=== PATIENT | female | born 1985 | race Caucasian/White ===

== ENCOUNTER 2020-08-06 15:14 | Outpatient (REF) | payer BC, SELFPAY ==
[2020-08-06 13:56] LABS: ALT 27 U/L (14-59); AST 14 U/L (15-37); Albumin 3.8 g/dL (3.4-5.0); Alkaline Phosphatase 46 U/L (46-116); Anion Gap 8.4 mmol/L (3-11); BUN 14 mg/dL (7-18); Bilirubin, Total 0.5 mg/dL (0.2-1.0); CO2 27.6 mmol/L (21.0-32.0); CREATININE 0.8 mg/dL (0.55-1.02); Calcium 8.9 mg/dL (8.5-10.1); Calculated LDL 98 mg/dL (<100); Chloride 104 mmol/L (98-107); Cholesterol 165 mg/dL (<200); Glucose 78 mg/dL (74-106); HDL Cholesterol 54 mg/dL (40-60); Potassium 4.3 mmol/L (3.5-5.1); Sodium 140 mmol/L (136-145); TSH (W/Ref FT4) 1.13 uIU/mL (0.36-3.74); Total Protein 7.1 g/dL (6.4-8.2); Triglyceride 68 mg/dL (<150)
[2020-08-08 05:03] LABS: Vitamin D 25 Total 29.3 ng/ml (30-100)
[2020-08-08 12:19] LABS: Lamotrigine 2.2 mcg/mL (2.5 - 15.0)
== END 2020-08-06 15:15 | disposition home or self-care (01) ==
LOC: NCHCN 15:14
PROVIDERS: PCP Family Medicine; Visit Provider Family Medicine
DX: Z00.00 Encounter for general adult medical examination without abnormal findings (principal); E55.9 Vitamin D deficiency, unspecified; G40.909 Epilepsy, unspecified, not intractable, without status epilepticus; E66.9 Obesity, unspecified; Z51.81 Encounter for therapeutic drug level monitoring
CPT/HCPCS: 80053; 80061; 80175; 82306; 84443

== ENCOUNTER 2023-10-04 15:16 | Outpatient (REF) | payer BC, SELFPAY ==
[2023-10-06 09:04] LABS: Lyme Ab w Rflx to Lyme Confirm Negative (Negative)
[2023-10-08 00:27] LABS: Anaplasma phagocytophilum Negative (Negative); B. miyamotoi PCR Negative (Negative); Babesia divergens/MO-1 Negative (Negative); Babesia duncani Negative (Negative); Babesia microti Negative (Negative); Ehrlichia chaffeensis Negative (Negative); Ehrlichia ewingii/canis Negative (Negative); Ehrlichia muris eauclairensis Negative (Negative)
== END 2023-10-04 15:17 | disposition home or self-care (01) ==
LOC: NCHCN 15:16
PROVIDERS: PCP Family Medicine; Visit Provider Family Medicine
DX: W57.XXXD Bitten or stung by nonvenomous insect and other nonvenomous arthropods, subsequent encounter (principal)
CPT/HCPCS: 87798; 86618

== ENCOUNTER 2023-12-03 15:18 | Outpatient (REF) | payer BC, SELFPAY ==
--- OUTSIDE RECORDS SUMMARY | 2023-12-03 15:20 | XMS_ITS ---
Author Name Unknown Address [address] [place], [place] [phone] Phone Organization Unknown Address [address] [place] [phone] Phone Care Team Providers Care Wood Last Maker Name Role Phone GLOSS PRESTON Newberry Attending Unavailable BIN[facility] Alicea Primary Unavailable Social History Type Status Start Date End Date Code Code Syst em Smoking History Never smoker (Never Smoked) 069086077 SNOMED CT Sex Female Medications Medication Start Date End Date Route Frequency Dose Code Code System Medication Instructions Home Meds Ondansetron 4MG Oral Tablet, Disintegrating 12/16/2021 Unknown ORAL NEEDED EVERY 6 HOURS 1 TABLET 479149 RxNorm TAKE 1 TABLET ORAL NEEDED EVERY 6 HOURS FOR Nausea/Vomiting Hospital Discharge Instructions Should you have any questions prior to discharge, please contact a member of your healthcare team. If you have left the hospital and have any questions, please contact your primary care physician. Reason For Referral No Data Found Problems Problem Start Date Resolved Date Status Code Code System EPILEPSY 12/15/2021 resolved [id number] SNOMED-CT Allergies and Adverse Reactions Allergy Substance Reaction Severity Start Date Concern Status Code Code System AMOXICILLIN Anaphylaxis (SNOMED-CT: 57379773) Active 723 RxNorm Plan of Treatment US OB COMPLETE 06/05/2022 US OB LIMITED 02/20/2022 US OB BIOPHYSICAL PROF 02/13/2022 US OB / TV 12/16/2021 US OB / TV 11/18/2021 Encounters Encounter Diagnosis Start Date Code Code Sys tem Encounter for test, result positive 11/29/19 22 SNOMED-CT Personal Care Team Section Performer Name Performer Role Active Date Inactive Da te
--- OUTSIDE RECORDS SUMMARY | 2023-12-03 15:20 | XMS_ITS ---
Author Name Unknown Address [address] [place] [phone] Phone Organization Unknown Address [address] [place] [phone] Phone Care Team Providers Care Dba Developer Name Role Phone GLOSS PRESTON Newberry Attending Unavailable BIN[facility] Alicea Primary Unavailable Results US OB LESS THAN 14 WKS W TRA NSVAGINAL* - Completed: 11/18/2021 15:44 LOINC: OB ULTRASOUND: OB ultrasound was performed utilizing first trimester protocol. There is a single intrauterine gestational sac with single viable fetus. Bylas- rump length measurements are consistent with gestational age of 7 weeks and 3 days and EDC of 07/04/2022. heart rate is 159 BPM. Uterus contains at least three small fibroids, the largest a fundal fibroid measuring 28 mm in diameter. Right ovary unremarkable in appearance and measuring 29 x 19 x 19 mm. Left ovary contains a 31 mm in diameter simple cyst and 21 mm in diameter complex cyst consistent with corpus luteum cyst. There is a small quantity of free fluid in the cul-de-sac. CONCLUSION: Viable intrauterine gestation at 7 weeks and 3 days estimated gestational age. Dictated by: DAYANA CORDERO MD Transcribed by: AUGUSTINE 11/19/21/11:23 [id number] Electronically Reviewed and Signed By: RENETTA CORDERO MD 11/23/21 13:02 Copy for: BIN[facility] Alicea via fax Copy for: 185 HEALTH INFORMATION MGMT Social History Type Status Start Date End Date Code Code Syst em Smoking History Never smoker (Never Smoked) 749345219 SNOMED CT Sex Female Medications Medication Start Date End Date Route Frequency Dose Code Code System Medication Instructions Home Meds Ondansetron 4MG Oral Tablet, Disintegrating 12/16/2021 Unknown ORAL NEEDED EVERY 6 HOURS 1 TABLET 579624 RxNorm TAKE 1 TABLET ORAL NEEDED EVERY [...] Status Code Code System EPILEPSY 12/15/2021 resolved 60479139 SNOMED-CT Allergies and Adverse Reactions Allergy Substance Reaction Severity Start Date Concern Status Code Code System AMOXICILLIN Anaphylaxis (SNOMED-CT: 42365730) Active 723 RxNorm Plan of Treatment US OB COMPLETE 06/05/2022 US OB LIMITED 02/20/2022 US OB BIOPHYSICAL PROF 02/13/2022 US OB / TV 12/16/2021 US OB / TV 11/18/2021 Encounters Encounter Diagnosis Start Date Code Code Sys tem Hemorrhage in early , unspecified 11/18/2021 SNOMED-CT Personal Care Team Section Performer Name Performer Role Active Date Inactive Da te
--- OUTSIDE RECORDS SUMMARY | 2023-12-03 15:20 | XMS_ITS ---
Author Name Unknown Address [address] [place] [phone] Phone Organization Unknown Address [address] [place] [phone] Phone Care Team Providers Care Packaging Sales Consultant Name Role Phone GISEL Sawyer Attending Unavailable BIN[facility] Alicea Primary Unavailable Results HCG QUANTITATIVE WHOLE MOLEC ULE* - Collect Date/Time: 11/14/2021 17:22 [facility] ID: [id number] [address] [place] [address], [address] LOINC: 21476-3 Test Value Unit Reference Range Code Code System Flag HCG, total+Beta subs 34455 35277-5 LOINC TYPE AND ANTIBODY S CREEN* - Collect Date/Time: 11/14/2021 17:22 [facility] ID: [id number] [address] [place] [address], [id number] LOINC: 882-1 Test Value Unit Reference Range Code Code System Flag Blood Group B 883-9 LOINC Rh (D) POSITIVE 23306-6 LOINC Antibody Screen NEGATIVE 1005-8 LOINC CBC W/ DIFFERENTIAL* - Colle ct Date/Time: 11/14/2021 17:22 [facility] ID: [id number] [address] [place] [address], [address] LOINC: 01389-6 Test Value Unit Reference Range Code Code System Flag WBC 11.43 th/cmm L=5.00 H=10.00 6690-2 LOINC H NEUT % 66.3 % L=40.0 H=80.0 LYMPH % 22.8 % L=10.0 H=50.0 MONO % 8.0 % L=2.0 H=12.0 72567-2 LOINC EOS % 2.0 % L=0.0 H=8.0 BASO % 0.6 % L=0.0 H=3.0 IG % 0.3 % L=0.0 H=1.1 2514-8 LOINC NRBC % 0.0 % L=0.0 H=0.0 54795-7 LOINC NEUT abs count 7.6 th/cmm L=1.6 H=8.4 751-8 LOINC LYMPH abs count 2.6 th/cmm L=1.5 H=4.0 731-0 LOINC MONO abs count 0.9 th/cmm L=0.2 H=1.0 742-7 LOINC EOS abs count 0.2 th/cmm L=0.0 H=0.5 711-2 LOINC BASO abs count 0.1 th/cmm L=0.0 H=0.2 704-7 LOINC IG abs count 0.0 th/cmm L=0.0 H=0.1 03728-6 LOINC NRBC abs count 0.0 mil/cmm L=0.0 H=0.0 76293-4 LOINC RBC 4.84 mil/cmm L=3.90 H=5.40 789-8 LOINC HEMOGLOBIN 14.2 gm/dL L=12.0 H=16.0 718-7 LOINC HEMATOCRIT 42 % L=37 H=47 4544-3 LOINC MCV 87 fL L=82 H=92 787-2 LOINC MCH 29.3 pg L=27.0 H=31.0 785-6 LOINC MCHC 33.9 % L=32.0 H=36.0 786-4 LOINC RDW-SD 41.8 fL L=39.0 H=49.0 788-0 LOINC PLATELET COUNT 306 th/cmm L=150 H=450 777-3 LOINC THYROID TESTING CASCADE* - C ollect Date/Time: 11/14/2021 17:22 [facility] ID: [id number] [address] [place], [place], [address] LOINC: 3016-3 Test Value Unit Reference Range Code Code System Flag TSH. 1.510 uIU/mL L=0.360 H=3.740 3014-8 LOINC Social History Type Status Start Date End Date Code Code Syst em Smoking History Never smoker (Never Smoked) 996896628 SNOMED CT Sex Female Medications Medication Start Date End Date Route Frequency Dose Code Code System Medication Instructions Home Meds Ondansetron 4MG Oral Tablet, Disintegrating 12/16/2021 Unknown ORAL NEEDED EVERY 6 HOURS 1 TABLET 192317 RxNorm TAKE 1 TABLET ORAL NEEDED EVERY [...] Status Code Code System EPILEPSY 12/15/2021 resolved 87450099 SNOMED-CT Allergies and Adverse Reactions Allergy Substance Reaction Severity Start Date Concern Status Code Code System AMOXICILLIN Anaphylaxis (SNOMED-CT: 54351267) Active 723 RxNorm Plan of Treatment US OB COMPLETE 06/05/2022 US OB LIMITED 02/20/2022 US OB BIOPHYSICAL PROF 02/13/2022 US OB / TV 12/16/2021 US OB / TV 11/18/2021 Encounters Encounter Diagnosis Start Date Code Code Sys tem test positive 11/14/2021 [id number] [facility] ED-CT Personal Care Team Section Performer Name Performer Role Active Date Inactive Da te
--- OUTSIDE RECORDS SUMMARY | 2023-12-03 15:21 | XMS_ITS ---
Author Name Unknown Address [address] [place], [place] [phone] Phone Organization Unknown Address [address] [place] [phone] Phone Care Team Providers Care C.O.D. Audit Clerk Name Role Phone JEAN GARZA Registered Nurse Unavailable JORGE Hill Attending Unavailable BINH Alicea Primary Unavailable UNLISTED PROVIDER - REQUESTED Xhandoff Un available Results URINALYSIS WITH REFLEX CULT IF POSITIVE* - Collect Date/Time: 12/16/2021 00:01 [facility] ID: [id number] [address] [place], [place], [address] LOINC: 75365-4 Test Value Unit Reference Range Code Code System Flag COLLECTION MODE: CLEAN CATCH 52071-9 LOINC Color YELLOW yellow 5778-6 LOINC Appearance CLEAR clear 5767-9 LOINC Glucose urine NEGATIVE negative mg/dl 83069-5 LOINC Bilirubin NEGATIVE negative 5770-3 LOINC Ketones >=80 negative mg/dl 2514-8 LOINC A Spec gravity 1.025 1.003 - 1.030 5811-5 LOINC pH urine 6.0 5.0 - 7.0 2756-5 LOINC Protein NEGATIVE negative mg/dl 61588-6 LOINC Urobilinogen 0.2 <or= 1 EU/dl 72936-8 LOINC Nitrite. NEGATIVE negative 5802-4 LOINC Blood SMALL negative 5794-3 LOINC A Leukocytes. NEGATIVE negative MICROSCOPIC INDICATED WBCs. 0-5 0-5 / hpf 59176-9 LOINC RBCs 0-5 0-5 / hpf 63560-4 LOINC Epith cells 0-5 0-5 / hpf 44458-9 LOINC Cell types squamous Crystals none none Bacteria moderate none Mucus present none 8247-9 LOINC Casts none none /lpf 06449-1 LOINC Other 64755-9 LOINC COMPREHENSIVE METABOLIC PANE L (CMP) - Collect Date/Time: 12/15/2021 21:58 [facility] ID: [id number] [address] [place], [place], [address] LOINC: 26243-1 Test Value Unit Reference Range Code Code System Flag GLUCOSE 91 mg/dL L=70 H=116 2345-7 LOINC BUN 7 mg/dL L=6 H=25 3094-0 LOINC CREATININE 0.50 mg/dL L=0.51 H=0.95 2160-0 LOINC L SODIUM SERUM 135 mmol/L L=136 H=145 2951-2 LOINC L POTASSIUM SERUM 3.6 mmol/L L=3.4 H=5.2 2823-3 LOINC CHLORIDE SERUM 100 mmol/L L=96 H=110 2075-0 LOINC CARBON DIOXIDE (CO2) 21 mmol/L L=22 H=34 2028-9 LOINC L ANION GAP 14.2 mmol/L 48975-8 LOINC CALCIUM SERUM 8.7 mg/dL L=8.2 H=10.2 24589-3 LOINC BILIRUBIN TOTAL 0.4 mg/dL L=0.0 H=1.3 1975-2 LOINC ALK. PHOS. 49 U/L L=46 H=116 6768-6 LOINC SGOT (AST) 18 U/L L=15 H=37 1920-8 LOINC SGPT (ALT) 39 U/L L=12 H=78 1742-6 LOINC TOTAL PROTEIN 7.4 gm/dL L=6.0 H=8.0 2885-2 LOINC ALBUMIN 3.6 gm/dL L=3.4 H=5.0 1751-7 LOINC AGE 36 years eGFR (non-Afr.Amer.) > 120 mL/min 27563-5 LOINC eGFR (Afr-Mexican) > 120 mL/min 79499-4 LOINC CBC W/ DIFFERENTIAL* - Colle ct Date/Time: 12/15/2021 21:58 [facility] ID: [id number] [address] [place], [place], [address] LOINC: 56381-7 Test Value Unit Reference Range Code Code System Flag WBC 11.30 th/cmm L=5.00 H=10.00 6690-2 LOINC H NEUT % 78.0 % L=40.0 H=80.0 LYMPH % 14.8 % L=10.0 H=50.0 MONO % 5.6 % L=2.0 H=12.0 32035-2 LOINC EOS % 0.8 % L=0.0 H=8.0 BASO % 0.4 % L=0.0 H=3.0 IG % 0.4 % L=0.0 H=1.1 2514-8 LOINC NRBC % 0.0 % L=0.0 H=0.0 68613-4 LOINC NEUT abs count 8.8 th/cmm L=1.6 H=8.4 751-8 LOINC H LYMPH abs count 1.7 th/cmm L=1.5 H=4.0 731-0 LOINC MONO abs count 0.6 th/cmm L=0.2 H=1.0 742-7 LOINC EOS abs count 0.1 th/cmm L=0.0 H=0.5 711-2 LOINC BASO abs count 0.1 th/cmm L=0.0 H=0.2 704-7 LOINC IG abs count 0.1 th/cmm L=0.0 H=0.1 29478-4 LOINC NRBC abs count 0.0 mil/cmm L=0.0 H=0.0 98947-0 LOINC RBC 4.56 mil/cmm L=3.90 H=5.40 789-8 LOINC HEMOGLOBIN 13.5 gm/dL L=12.0 H=16.0 718-7 LOINC HEMATOCRIT 40 % L=37 H=47 4544-3 LOINC MCV 87 fL L=82 H=92 787-2 LOINC MCH 29.6 pg L=27.0 H=31.0 785-6 LOINC MCHC 34.1 % L=32.0 H=36.0 786-4 LOINC RDW-SD 41.3 fL L=39.0 H=49.0 788-0 LOINC PLATELET COUNT 277 th/cmm L=150 H=450 777-3 LOINC Social History Type Status Start Date End Date Code Code Syst em Smoking History Never smoker (Never Smoked) 266101645 SNOMED CT Sex Female Vital Signs Vital Sign Value Unit [place] Value [facility]wood Unit Date/Time Recent/Initial? Code Code System Body Mass Index 37.50 kg/m2 12/15/2021 21:35 Initial 31028 -5 INC Systolic Blood Pressure 131 mm[Hg] 12/15/2021 21:35 Initial 8480- 6 LOINC Diastolic Blood Pressure 93 mm[Hg] 12/15/2021 21:35 Initial 8462- 4 INC Body Surface Area 2.37 m2 12/15/2021 21:35 Initial 3140- 1 LOINC Height 175.260 0 cm 69.00 in 12/15/2021 21:35 Initial 8302- 2 INC O2 Saturation 97 % 2021 21:35 Initial 12510 -5 INC Pulse 80.0 /min 12/15/2021 21:35 Initial 8867- 4 LOINC Respiration 18 /min 12/16/19 21:35 Initial 9279- 1 LOINC Temperature 36.8 Sindi 98.2 F 12/16/19 21:35 Initial 8310- 5 LOINC Weight 115.20 kg 253.97 lbs 12/15/2021 21:35 Initial 31518 -7 [facility] Medications Medication Start Date End Date Route Frequency Dose Code Code System Medication Instructions Home Meds Ondansetron 4MG Oral Tablet, Disintegrating 12/16/2021 Unknown ORAL NEEDED EVERY 6 HOURS 1 TABLET 314212 RxNorm TAKE 1 TABLET ORAL NEEDED EVERY [...] Status Code Code System EPILEPSY 12/15/2021 resolved 35983361 SNOMED-CT Allergies and Adverse Reactions Allergy Substance Reaction Severity Start Date Concern Status Code Code System AMOXICILLIN Anaphylaxis (SNOMED-CT: 34409563) Active 723 RxNorm Plan of Treatment US OB COMPLETE 06/05/2022 US OB LIMITED 02/20/2022 US OB BIOPHYSICAL PROF 02/13/2022 US OB / TV 12/16/2021 US OB / TV 11/18/2021 Encounters Encounter Diagnosis Start Date Code Code Sys tem Vomiting of , unspecified 12/15/2021 SNOMED-CT Personal Care Team Section Performer Name Performer Role Active Date Inactive Da te
--- OUTSIDE RECORDS SUMMARY | 2023-12-03 15:21 | XMS_ITS ---
Author Name Unknown Address [address] [place] [phone] Phone Organization Unknown Address [address] [place] [phone] Phone Care Team Providers Care Analytical Scientist Name Role Phone JORGE DEVANTE Hill Attending Unavailable BINH Alicea Primary Unavailable Results US OB LESS THAN 14 WKS W TRA NSVAGINAL* - Completed: 12/16/2021 16:49 LOINC: OBSTETRICAL ULTRASOUND, ROUT INE EXAMINATION: There is a single living intrauterine gestation. Estimated sonographic age based on crown-rump length is 12 weeks for an estimated date of delivery of 06/30/2022. heart rate is 175 beats per minute. There is a Grade 2 anterior and fundal placenta. The placental tip is 1.5 cm from the internal os. There are two hypoechoic mass is again seen within the uterus, the larger measuring 3.2 x 2.3 x 2.9 and the smaller measuring 2.4 x 1.5 x 1.6 cm. These likely reflect uterine fibroids. The ovaries were not visualized on this examination. The cervix is closed and cervical length measures 4.3 cm. IMPRESSION: 1. Single living intrauterine gestation with an estimated sonographic of 12 weeks. 2. No acute abnormality. Dictated by: WELLINGTON GAMEZ MD Transcribed by: AUGUSTINE 12/18/2108:55 [id number] Electronically Reviewed and Signed By: KRANTHI GAMEZ MD 12/24/21 08:58 Copy for: BINH Alicea via fax Copy for: 185 HEALTH INFORMATION MGMT Social History Type Status Start Date End Date Code Code Syst em Smoking History Never smoker (Never Smoked) 031706105 SNOMED CT Sex Female Medications Medication Start Date End Date Route Frequency Dose Code Code System Medication Instructions Home Meds Ondansetron 4MG Oral Tablet, Disintegrating 12/16/2021 Unknown ORAL NEEDED EVERY 6 HOURS 1 TABLET 665783 RxNorm TAKE 1 TABLET ORAL NEEDED EVERY [...] Status Code Code System EPILEPSY 12/15/2021 resolved 48640273 SNOMED-CT Allergies and Adverse Reactions Allergy Substance Reaction Severity Start Date Concern Status Code Code System AMOXICILLIN Anaphylaxis (SNOMED-CT: 41973753) Active 723 RxNorm Plan of Treatment US OB COMPLETE 06/05/2022 US OB LIMITED 02/20/2022 US OB BIOPHYSICAL PROF 02/13/2022 US OB / TV 12/16/2021 US OB / TV 11/18/2021 Encounters Encounter Diagnosis Start Date Code Code Sys tem Hemorrhage in early , unspecified 12/16/2021 SNOMED-CT Personal Care Team Section Performer Name Performer Role Active Date Inactive Da te
--- OUTSIDE RECORDS SUMMARY | 2023-12-03 15:21 | XMS_ITS ---
Author Name Unknown Address [address], [place] [phone] Phone Organization Unknown Address [address] [place] [phone] Phone Care Team Providers Care Ophthalmic Aide Name Role Phone GLOSS PRESTON Newberry Attending Unavailable BINH Alicea Primary Unavailable Social History Type Status Start Date End Date Code Code Syst em Smoking History Never smoker (Never Smoked) 823253733 SNOMED CT Sex Female Medications Medication Start Date End Date Route Frequency Dose Code Code System Medication Instructions Home Meds Ondansetron 4MG Oral Tablet, Disintegrating 12/16/2021 Unknown ORAL NEEDED EVERY 6 HOURS 1 TABLET 124927 RxNorm TAKE 1 TABLET ORAL NEEDED EVERY [...] Status Code Code System EPILEPSY 12/15/2021 resolved 63248495 SNOMED-CT Allergies and Adverse Reactions Allergy Substance Reaction Severity Start Date Concern Status Code Code System AMOXICILLIN Anaphylaxis (SNOMED-CT: 62265756) Active 723 RxNorm Plan of Treatment US OB COMPLETE 06/05/2022 US OB LIMITED 02/20/2022 US OB BIOPHYSICAL PROF 02/13/2022 US OB / TV 12/16/2021 US OB / TV 11/18/2021 Encounters Encounter Diagnosis Start Date Code Code Sys tem Routine care 12/16/2021 539999743 SNOME D-CT Personal Care Team Section Performer Name Performer Role Active Date Inactive Da te
--- OUTSIDE RECORDS SUMMARY | 2023-12-03 15:21 | XMS_ITS ---
Author Name Unknown Address [address] [place], [place] [phone] Phone Organization Unknown Address [address] [place] [phone] Phone Care Team Providers Care Nurse Informatics Educator Name Role Phone CARMELINA Rouse Attending Unavailable BINH Alicea Primary Unavailable Social History Type Status Start Date End Date Code Code Syst em Smoking History Never smoker (Never Smoked) 468566362 SNOMED CT Sex Female Medications Medication Start Date End Date Route Frequency Dose Code Code System Medication Instructions Home Meds Ondansetron 4MG Oral Tablet, Disintegrating 12/16/2021 Unknown ORAL NEEDED EVERY 6 HOURS 1 TABLET 417356 RxNorm TAKE 1 TABLET ORAL NEEDED EVERY [...] Status Code Code System EPILEPSY 12/15/2021 resolved 73398243 SNOMED-CT Allergies and Adverse Reactions Allergy Substance Reaction Severity Start Date Concern Status Code Code System AMOXICILLIN Anaphylaxis (SNOMED-CT: 57653823) Active 723 RxNorm Plan of Treatment US OB COMPLETE 06/05/2022 US OB LIMITED 02/20/2022 US OB BIOPHYSICAL PROF 02/13/2022 US OB / TV 12/16/2021 US OB / TV 11/18/2021 Encounters Encounter Diagnosis Start Date Code Code Sys tem Maternal obesity complicatin g , childbirth and the puerperium, antepartum 12/23/2021 [id number] SNOMED-CT Personal Care Team Section Performer Name Performer Role Active Date Inactive Da te
--- OUTSIDE RECORDS SUMMARY | 2023-12-03 15:22 | XMS_ITS ---
Author Name Unknown Address [address] [place] [phone] Phone Organization Unknown Address [address] [place] [phone] Phone Care Team Providers Care Wellness Nurse Name Role Phone GLOSS PRESTON Newberry Attending Unavailable BINH Alicea Primary Unavailable Results LEAD WHOLE BLOOD* - Collect Date/Time: 01/21/2022 17:44 [facility] ID: [id number] [address] [place] [address], [id number] LOINC: 13938-0 Test Value Unit Reference Range Code Code System Flag Lead <2.0 <2.0 HEP B SURF ANTIGEN* - Collec t Date/Time: 01/21/2022 17:44 [facility] ID: [id number] [address] [place], [place], [id number] LOINC: 5196-1 Test Value Unit Reference Range Code Code System Flag Hep B Surface Ag Negative Negative HEP C ANTIBODY WITH REFLEX P CR - Collect Date/Time: 01/21/2022 17:44 [facility] ID: [id number] [address] [place], [place], [id number] LOINC: 53077-7 Test Value Unit Reference Range Code Code System Flag Hep C Ab w Rfx PCR Negative Negative SYPHILIS SEROLOGY* - Collect Date/Time: 01/21/2022 17:44 [facility] ID: [id number] [address] [place], [place], [id number] LOINC: 77270-8 Test Value Unit Reference Range Code Code System Flag Syphilis Serology Negative Negative RUBELLA IGG ANTIBODY - Colle ct Date/Time: 01/21/2022 17:44 [facility] ID: [id number] [address] [place], [place], [id number] LOINC: 25358-5 Test Value Unit Reference Range Code Code System Flag Rubella IgG Ab Negative See Note HEMATOLOGY* - Colle ct Date/Time: 01/21/2022 17:44 [facility] ID: [id number] [address] [place], [place], [id number] LOINC: 47960-8 Test Value Unit Reference Range Code Code System Flag WBC 12.81 th/cmm L=5.00 H=10.00 6690-2 LOINC H NEUT % 74.0 % L=40.0 H=80.0 LYMPH % 18.3 % L=10.0 H=50.0 MONO % 5.7 % L=2.0 H=12.0 86981-8 LOINC EOS % 1.3 % L=0.0 H=8.0 BASO % 0.4 % L=0.0 H=3.0 IG % 0.3 % L=0.0 H=1.1 2514-8 LOINC NRBC % 0.0 % L=0.0 H=0.0 50871-1 LOINC NEUT abs count 9.5 th/cmm L=1.6 H=8.4 751-8 LOINC H LYMPH abs count 2.3 th/cmm L=1.5 H=4.0 731-0 LOINC MONO abs count 0.7 th/cmm L=0.2 H=1.0 742-7 LOINC EOS abs count 0.2 th/cmm L=0.0 H=0.5 711-2 LOINC BASO abs count 0.1 th/cmm L=0.0 H=0.2 704-7 LOINC IG abs count 0.0 th/cmm L=0.0 H=0.1 92449-0 LOINC NRBC abs count 0.0 mil/cmm L=0.0 H=0.0 32804-1 LOINC RBC 4.18 mil/cmm L=3.90 H=5.40 789-8 LOINC HEMOGLOBIN 12.3 gm/dL L=12.0 H=16.0 718-7 LOINC HEMATOCRIT 37 % L=37 H=47 4544-3 LOINC MCV 88 fL L=82 H=92 787-2 LOINC MCH 29.4 pg L=27.0 H=31.0 785-6 LOINC MCHC 33.6 % L=32.0 H=36.0 786-4 LOINC RDW-SD 44.0 fL L=39.0 H=49.0 788-0 LOINC PLATELET COUNT 253 th/cmm L=150 H=450 777-3 LOINC HIV 1/2 ANTIGEN AND ANTIBODY SCREEN - Collect Date/Time: 01/21/2022 17:44 [facility] ID: [id number] [address] [place], [place], [id number] LOINC: 87483-6 Test Value Unit Reference Range Code Code System Flag HIV 1/2 Antigen andAntibody Negative Negative Social History Type Status Start Date End Date Code Code Syst em Smoking History Never smoker (Never Smoked) 818063673 SNOMED CT Sex Female Medications Medication Start Date End Date Route Frequency Dose Code Code System Medication Instructions Home Meds Ondansetron 4MG Oral Tablet, Disintegrating 12/16/2021 Unknown ORAL NEEDED EVERY 6 HOURS 1 TABLET 381439 RxNorm TAKE 1 TABLET ORAL NEEDED EVERY [...] Status Code Code System EPILEPSY 12/15/2021 resolved 71191401 SNOMED-CT Allergies and Adverse Reactions Allergy Substance Reaction Severity Start Date Concern Status Code Code System AMOXICILLIN Anaphylaxis (SNOMED-CT: 38229555) Active 723 RxNorm Plan of Treatment US OB COMPLETE 06/05/2022 US OB LIMITED 02/20/2022 US OB BIOPHYSICAL PROF 02/13/2022 US OB / TV 12/16/2021 US OB / TV 11/18/2021 Encounters Encounter Diagnosis Start Date Code Code Sys tem screening 01/21/2022 345783864 SNOMED-C T Personal Care Team Section Performer Name Performer Role Active Date Inactive Da te
--- OUTSIDE RECORDS SUMMARY | 2023-12-03 15:22 | XMS_ITS ---
Author Name Unknown Address [address] [place] [address] [phone] Phone Organization Unknown Address [address] [place] [address] [phone] Phone Care Team Providers Care Manager Package Name Role Phone BLESSING SEPTEMBER Attending Unavailable BINH Alicea Primary Unavailable Results US OB LIMITED - Completed: 0 02/20/2022 14:54 LOINC: [place], [place] [address] PACS MACHINE WELT BUTTER REPORT Patient Name: ABDIFATAH MATSON MRN: Sex: : Age: [id number] F 1985 36 Account: Accession: Admit: StayType: [id number] 02/20/2022 O/P Ordered: Order ID: Entered Order: Ordering Provider: 02/20/2022 14:28 [id number] KT JULIETALEAH Completed: Tech Completed: Resulted DTTM: 02/20/2022 14:54 02/20/2022 17:45 Study Description: US OB LIMITED Study Reason: OBESITYINPREGNANCY TECHNIQUE: Transabdominal obstetrical ultrasound performed. Comparison examination is 02/13/2022. FINDINGS: Number of fetuses: One. position: Breech. Placental location: Anterior. No evidence of previa. morphology: The nose, lips, profile, four-chamber heart and right and left ventricular outflow tracts are unremarkable. IMPRESSION: 1. Single live intrauterine gestation as above. 2. Completion of the anatomic survey shows unremarkable face and heart. Report Digitally Signed by Petros Hansen on 02/20/2022 05:45 PM EDT Social History Type Status Start Date End Date Code Code Syst em Smoking History Never smoker (Never Smoked) 326980966 SNOMED CT Sex Female Medications Medication Start Date End Date Route Frequency Dose Code Code System Medication Instructions Home Meds Ondansetron 4MG Oral Tablet, Disintegrating 12/16/2021 Unknown ORAL NEEDED EVERY 6 HOURS 1 TABLET 319449 RxNorm TAKE 1 TABLET ORAL NEEDED EVERY [...] Status Code Code System EPILEPSY 12/15/2021 resolved 08032320 SNOMED-CT Allergies and Adverse Reactions Allergy Substance Reaction Severity Start Date Concern Status Code Code System AMOXICILLIN Anaphylaxis (SNOMED-CT: 32615783) Active 723 RxNorm Plan of Treatment US OB COMPLETE 06/05/2022 US OB LIMITED 02/20/2022 US OB BIOPHYSICAL PROF 02/13/2022 US OB / TV 12/16/2021 US OB / TV 11/18/2021 Encounters Encounter Diagnosis Start Date Code Code Sys tem Obesity complicating , second trimester 02/20 SNOMED-CT Personal Care Team Section Performer Name Performer Role Active Date Inactive Da te
--- OUTSIDE RECORDS SUMMARY | 2023-12-03 15:22 | XMS_ITS ---
Author Name Unknown Address [address] [place] [address] [phone] Phone Organization Unknown Address [address] [place] [address] [phone] Phone Care Team Providers Care Feather Maker Name Role Phone GISEL Sawyer Attending Unavailable BINH Alicea Primary Unavailable Results CULT URINE CULTURE* - Yaa goncalves Date/Time: 01/23/2022 16:23 [facility] ID: [id number] [address] [place] [address], [id number] LOINC: 630-4 Test Value Unit Reference Range Code Code System Flag COLLECTION MODE: NOT STATED 35419-7 LOINC Social History Type Status Start Date End Date Code Code Syst em Smoking History Never smoker (Never Smoked) 581582120 SNOMED CT Sex Female Medications Medication Start Date End Date Route Frequency Dose Code Code System Medication Instructions Home Meds Ondansetron 4MG Oral Tablet, Disintegrating 12/16/2021 Unknown ORAL NEEDED EVERY 6 HOURS 1 TABLET 874528 RxNorm TAKE 1 TABLET ORAL NEEDED EVERY [...] Status Code Code System EPILEPSY 12/15/2021 resolved 93915861 SNOMED-CT Allergies and Adverse Reactions Allergy Substance Reaction Severity Start Date Concern Status Code Code System AMOXICILLIN Anaphylaxis (SNOMED-CT: 47957772) Active 723 RxNorm Plan of Treatment US OB COMPLETE 06/05/2022 US OB LIMITED 02/20/2022 US OB BIOPHYSICAL PROF 02/13/2022 US OB / TV 12/16/2021 US OB / TV 11/18/2021 Encounters Encounter Diagnosis Start Date Code Code Sys tem Supervision of elderly primigravida, second trimester 01/23/2022 SNOMED-CT Personal Care Team Section Performer Name Performer Role Active Date Inactive Da te
--- OUTSIDE RECORDS SUMMARY | 2023-12-03 15:22 | XMS_ITS ---
Author Name Unknown Address [address] [place] [address] [phone] Phone Organization Unknown Address [address] [place] [address] [phone] Phone Care Team Providers Care Sheet Tailer Name Role Phone CARMELINA Rouse Attending Unavailable BINH Alicea Primary Unavailable Results CHLAMYDIA/GC AMPLIFIED PROBE * - Collect Date/Time: 02/13/2022 13:39 [facility] ID: [id number] [address] [place] [address], [phone] LOINC: 73093-9 Test Value Unit Reference Range Code Code System Flag Chlamydia Result Negative Negative GC Result Negative Negative US OB FAS - Completed: 02/13 11:52 LOINC: [facility] [place], [place] [address] PACS SAFETY MANAGER REPORT Patient Name: ABDIFATAH MATSON MRN: Sex: : Age: [id number] F 1985 36 Account: Accession: Admit: StayType: [id number] 02/13/2022 O/P Ordered: Order ID: Entered Order: Ordering Provider: 02/13/2022 10:49 [id number] [facility] REYNA COSME Completed: Tech Completed: Resulted DTTM: 02/13/2022 11:52 02/13/2022 12:11 Study Description: US OB FAS Study Reason: FAS FINDINGS: Study Description: US OB FAS Study Reason: FAS TECHNIQUE: Transabdominal obstetrical ultrasound performed. FINDINGS: Number of fetuses: One. position: Cephalic. Placental location: Anterior and fundal. No evidence of previa. BIOMETRIC DATA: EFW: [361] grms Composite Age: [20 weeks 4 days, consistent with prior dating.] EDC: [29 June 2022] Heart Rate: [] 157 BPM Amniotic fluid index: [15.3] Cm. [Visually, amount of fluid is within normal limits.] Anatomic survey: face and heart are not optimally visualized. The survey is otherwise within normal limits. IMPRESSION: 1. [Single live intrauterine gestation 20 weeks 4 days.] [] 2. face and heart are not optimally imaged. Patient should return for additional imaging. [] Report Digitally Signed by Padmini Hanson on 02/13/2022 12:11 PM EDT Social History Type Status Start Date End Date Code Code Syst em Smoking History Never smoker (Never Smoked) 253548473 SNOMED CT Sex Female Medications Medication Start Date End Date Route Frequency Dose Code Code System Medication Instructions Home Meds Ondansetron 4MG Oral Tablet, Disintegrating 12/16/2021 Unknown ORAL NEEDED EVERY 6 HOURS 1 TABLET 843309 RxNorm TAKE 1 TABLET ORAL NEEDED EVERY [...] Status Code Code System EPILEPSY 12/15/2021 resolved 55913466 SNOMED-CT Allergies and Adverse Reactions Allergy Substance Reaction Severity Start Date Concern Status Code Code System AMOXICILLIN Anaphylaxis (SNOMED-CT: 66086210) Active 723 RxNorm Plan of Treatment US OB COMPLETE 06/05/2022 US OB LIMITED 02/20/2022 US OB BIOPHYSICAL PROF 02/13/2022 US OB / TV 12/16/2021 US OB / TV 11/18/2021 Encounters Encounter Diagnosis Start Date Code Code Sys tem Encounter for other specified screening 02/2022 SNOMED-CT Personal Care Team Section Performer Name Performer Role Active Date Inactive Da te
--- OUTSIDE RECORDS SUMMARY | 2023-12-03 15:23 | XMS_ITS ---
Author Name Unknown Address [address] [place], [place] [phone] Phone Organization Unknown Address [address] [place] [address] [phone] Phone Care Team Providers Care National Recruiter Name Role Phone GLOSS PRESTON Newberry Attending Unavailable BINH Alicea Primary Unavailable Social History Type Status Start Date End Date Code Code Syst em Smoking History Never smoker (Never Smoked) 278591031 SNOMED CT Sex Female Medications Medication Start Date End Date Route Frequency Dose Code Code System Medication Instructions Home Meds Ondansetron 4MG Oral Tablet, Disintegrating 12/16/2021 Unknown ORAL NEEDED EVERY 6 HOURS 1 TABLET 080562 RxNorm TAKE 1 TABLET ORAL NEEDED EVERY [...] Status Code Code System EPILEPSY 12/15/2021 resolved 82859325 SNOMED-CT Allergies and Adverse Reactions Allergy Substance Reaction Severity Start Date Concern Status Code Code System AMOXICILLIN Anaphylaxis (SNOMED-CT: 29239341) Active 723 RxNorm Plan of Treatment US OB COMPLETE 06/05/2022 US OB LIMITED 02/20/2022 US OB BIOPHYSICAL PROF 02/13/2022 US OB / TV 12/16/2021 US OB / TV 11/18/2021 Encounters Encounter Diagnosis Start Date Code Code Sys tem Elderly primigravida 04/24/2022 35967269 SNOMED- CT Personal Care Team Section Performer Name Performer Role Active Date Inactive Da te
--- OUTSIDE RECORDS SUMMARY | 2023-12-03 15:23 | XMS_ITS ---
Author Name Unknown Address [address] [place], [place] [phone] Phone Organization Unknown Address [address] [place] [address] [phone] Phone Care Team Providers Care Developer Support Engineer Name Role Phone GISEL Sawyer Attending Unavailable BINH Alicea Primary Unavailable Results HEMOGRAM + PLATELET WO DIFF - Collect Date/Time: 04/08/2022 17:39 [facility] ID: [id number] [address] [place], [place], [phone] LOINC: 34205-8 Test Value Unit Reference Range Code Code System Flag WBC 12.74 th/cmm L=5.00 H=10.00 6690-2 LOINC H NRBC % 0.0 % L=0.0 H=0.0 67588-4 LOINC NRBC abs count 0.0 mil/cmm L=0.0 H=0.0 71995-1 LOINC RBC 3.80 mil/cmm L=3.90 H=5.40 789-8 LOINC L HEMOGLOBIN 11.5 gm/dL L=12.0 H=16.0 718-7 LOINC L HEMATOCRIT 35 % L=37 H=47 4544-3 LOINC L MCV 92 fL L=82 H=92 787-2 LOINC MCH 30.3 pg L=27.0 H=31.0 785-6 LOINC MCHC 33.0 % L=32.0 H=36.0 786-4 LOINC RDW-SD 46.5 fL L=39.0 H=49.0 788-0 LOINC PLATELET COUNT 277 th/cmm L=150 H=450 777-3 LOINC GLUCOSE - 1 HOUR AFTER 50GM GLUCOLA - Collect Date/Time: 04/08/2022 17:39 [facility] ID: [id number] [address] [place], [place], [address] LOINC: 1504-0 Test Value Unit Reference Range Code Code System Flag GLUCOSE 1 HOUR 109 mg/dL L=0 H=135 1504-0 LOINC Social History Type Status Start Date End Date Code Code Syst em Smoking History Never smoker (Never Smoked) 219445489 SNOMED CT Sex Female Medications Medication Start Date End Date Route Frequency Dose Code Code System Medication Instructions Home Meds Ondansetron 4MG Oral Tablet, Disintegrating 12/16/2021 Unknown ORAL NEEDED EVERY 6 HOURS 1 TABLET 775807 RxNorm TAKE 1 TABLET ORAL NEEDED EVERY [...] Status Code Code System EPILEPSY 12/15/2021 resolved 94607581 SNOMED-CT Allergies and Adverse Reactions Allergy Substance Reaction Severity Start Date Concern Status Code Code System AMOXICILLIN Anaphylaxis (SNOMED-CT: 84896371) Active 723 RxNorm Plan of Treatment US OB COMPLETE 06/05/2022 US OB LIMITED 02/20/2022 US OB BIOPHYSICAL PROF 02/13/2022 US OB / TV 12/16/2021 US OB / TV 11/18/2021 Encounters Encounter Diagnosis Start Date Code Code Sys tem Elderly primigravida 04/08/2022 08237828 SNOMED- CT Personal Care Team Section Performer Name Performer Role Active Date Inactive Da becky
--- OUTSIDE RECORDS SUMMARY | 2023-12-03 15:23 | XMS_ITS ---
Author Name Unknown Address [address] [place], [place] [phone] Phone Organization Unknown Address [address] [place] [address] [phone] Phone Care Team Providers Care Food Quality Tester Name Role Phone GISEL Sawyer Attending Unavailable BINH Alicea Primary Unavailable Social History Type Status Start Date End Date Code Code Syst em Smoking History Never smoker (Never Smoked) 155460875 SNOMED CT Sex Female Medications Medication Start Date End Date Route Frequency Dose Code Code System Medication Instructions Home Meds Ondansetron 4MG Oral Tablet, Disintegrating 12/16/2021 Unknown ORAL NEEDED EVERY 6 HOURS 1 TABLET 227093 RxNorm TAKE 1 TABLET ORAL NEEDED EVERY [...] Status Code Code System EPILEPSY 12/15/2021 resolved 38219123 SNOMED-CT Allergies and Adverse Reactions Allergy Substance Reaction Severity Start Date Concern Status Code Code System AMOXICILLIN Anaphylaxis (SNOMED-CT: 28950156) Active 723 RxNorm Plan of Treatment US OB COMPLETE 06/05/2022 US OB LIMITED 02/20/2022 US OB BIOPHYSICAL PROF 02/13/2022 US OB / TV 12/16/2021 US OB / TV 11/18/2021 Encounters Encounter Diagnosis Start Date Code Code Sys tem Elderly primigravida 03/13/2022 74684115 SNOMED- CT Personal Care Team Section Performer Name Performer Role Active Date Inactive Da te
--- OUTSIDE RECORDS SUMMARY | 2023-12-03 15:24 | XMS_ITS ---
Author Name Unknown Address [address] [place], [place] [phone] Phone Organization Unknown Address [address] [place] [address] [phone] Phone Care Team Providers Care Sales Market Leader Name Role Phone JULIETALEAH SEPTEMBER Attending Unavailable BINH Alicea Primary Unavailable Results GROUP B STREP DNA BY PCR - C ollect Date/Time: 06/12/2022 16:00 [facility] ID: [id number] [address] [place] [address], [phone] LOINC: 93724-5 Test Value Unit Reference Range Code Code System Flag GROUP B STREP NEGATIVE Normal: Negative OTHER SOURCE: VAG/RECTA PCN ALLERGY? YES Copy Sent to OB? YES Social History Type Status Start Date End Date Code Code Syst em Smoking History Never smoker (Never Smoked) 247752411 SNOMED CT Sex Female Medications Medication Start Date End Date Route Frequency Dose Code Code System Medication Instructions Home Meds Ondansetron 4MG Oral Tablet, Disintegrating 12/16/2021 Unknown ORAL NEEDED EVERY 6 HOURS 1 TABLET 796741 RxNorm TAKE 1 TABLET ORAL NEEDED EVERY [...] Status Code Code System EPILEPSY 12/15/2021 resolved 97343635 SNOMED-CT Allergies and Adverse Reactions Allergy Substance Reaction Severity Start Date Concern Status Code Code System AMOXICILLIN Anaphylaxis (SNOMED-CT: 59915930) Active 723 RxNorm Plan of Treatment US OB COMPLETE 06/05/2022 US OB LIMITED 02/20/2022 US OB BIOPHYSICAL PROF 02/13/2022 US OB / TV 12/16/2021 US OB / TV 11/18/2021 Encounters Encounter Diagnosis Start Date Code Code Sys tem Maternal obesity complicatin g , childbirth and the puerperium, antepartum 06/12/2022 [id number] SNOMED-CT Personal Care Team Section Performer Name Performer Role Active Date Inactive Da te
--- OUTSIDE RECORDS SUMMARY | 2023-12-03 15:24 | XMS_ITS ---
Author Name Unknown Address [address] [place], [place] [phone] Phone Organization Unknown Address [address] [place] [phone] Phone Care Team Providers Care General Road Production Manager Name Role Phone GLOSS PRESTON Newberry Attending Unavailable BINH Alicea Primary Unavailable Social History Type Status Start Date End Date Code Code Syst em Smoking History Never smoker (Never Smoked) 176942168 SNOMED CT Sex Female Medications Medication Start Date End Date Route Frequency Dose Code Code System Medication Instructions Home Meds Ondansetron 4MG Oral Tablet, Disintegrating 12/16/2021 Unknown ORAL NEEDED EVERY 6 HOURS 1 TABLET 451376 RxNorm TAKE 1 TABLET ORAL NEEDED EVERY [...] Status Code Code System EPILEPSY 12/15/2021 resolved 16467461 SNOMED-CT Allergies and Adverse Reactions Allergy Substance Reaction Severity Start Date Concern Status Code Code System AMOXICILLIN Anaphylaxis (SNOMED-CT: 08546666) Active 723 RxNorm Plan of Treatment US OB COMPLETE 06/05/2022 US OB LIMITED 02/20/2022 US OB BIOPHYSICAL PROF 02/13/2022 US OB / TV 12/16/2021 US OB / TV 11/18/2021 Encounters Encounter Diagnosis Start Date Code Code Sys tem Elderly primigravida 05/08/2022 48276297 SNOMED- CT Personal Care Team Section Performer Name Performer Role Active Date Inactive Da te
--- OUTSIDE RECORDS SUMMARY | 2023-12-03 15:24 | XMS_ITS ---
Author Name Unknown Address [address] [place] [address] [phone] Phone Organization Unknown Address [address] [place] [address] [phone] Phone Care Team Providers Care Brim Rounder Name Role Phone BLESSING LIN Attending Unavailable BINH Alicea Primary Unavailable Results US OB GREATER THAN 14 WEEKS - Completed: 06/05/2022 14:27 LOINC: [place], [place] [address] PACS KILN CAR REPAIRER REPORT Patient Name: ABDIFATAH MATSON MRN: Sex: : Age: [id number] F 1985 36 Account: Accession: Admit: StayType: [id number] 06/05/2022 O/P Ordered: Order ID: Submitted: Ordering Provider: 06/05/2022 14:01 [id number] RILEY SUÁREZ Completed: Technologist: Resulted: 06/05/2022 14:27 BM 06/05/2022 14:53 Study Description: US OB GREATER THAN 14 WEEKS Study Reason: EFW & BOOM TECHNIQUE: Transabdominal obstetrical ultrasound was performed. COMPARISON: No exams were available for comparison FINDINGS: There is a single viable intrauterine gestation with cardiac activity identified-143 bpm The fetus is presently in cephalic position with spine pointing posteriorly. Amniotic fluid: There is a normal amount of amniotic fluid with an BOOM of 14.0cm. Placental location: The placenta is anterior grade 2,with no evidence of placenta previa. Distance from tip of placenta to the internal cervical os is 8 cm on today's study. Dating parameters place this at approximately 36 weeks and 2 days gestational age, implying CHAPO of July 01, 2022. BPD measures 35 weeks and 3 days HC measures 37 weeks and 0 days AC measures 36 weeks and 2 days FL measures 36 weeks and 4 days HL measures 36 weeks and 2 days Estimated weight is 6 pounds 7 ounces gm- Fetus is at the 53rd percentile on the Hadlock scale. Fetus is at the 50th percentile on the [place] hybrid growth curve. IMPRESSION: Viable 3rd trimester gestation, as described above. Report Digitally Signed by Dane Boogie on 06/05/2022 02:53 PM EST Social History Type Status Start Date End Date Code Code Syst em Smoking History Never smoker (Never Smoked) 658798681 SNOMED CT Sex Female Medications Medication Start Date End Date Route Frequency Dose Code Code System Medication Instructions Home Meds Ondansetron 4MG Oral Tablet, Disintegrating 12/16/2021 Unknown ORAL NEEDED EVERY 6 HOURS 1 TABLET 874285 RxNorm TAKE 1 TABLET ORAL NEEDED EVERY [...] Status Code Code System EPILEPSY 12/15/2021 resolved 78823992 SNOMED-CT Allergies and Adverse Reactions Allergy Substance Reaction Severity Start Date Concern Status Code Code System AMOXICILLIN Anaphylaxis (SNOMED-CT: 91059385) Active 723 RxNorm Plan of Treatment US OB COMPLETE 06/05/2022 US OB LIMITED 02/20/2022 US OB BIOPHYSICAL PROF 02/13/2022 US OB / TV 12/16/2021 US OB / TV 11/18/2021 Encounters Encounter Diagnosis Start Date Code Code Sys tem Uterine size-date discrepancy, third trimester 022 SNOMED-CT Personal Care Team Section Performer Name Performer Role Active Date Inactive Da te
--- OUTSIDE RECORDS SUMMARY | 2023-12-03 15:24 | XMS_ITS ---
Author Name Unknown Address [address] [place], [place] [phone] Phone Organization Unknown Address [address] [place] [phone] Phone Care Team Providers Care Denture Processor Name Role Phone September Attending Unavailable BINH Alicea Primary Unavailable Social History Type Status Start Date End Date Code Code Syst em Smoking History Never smoker (Never Smoked) 306388456 SNOMED CT Sex Female Medications Medication Start Date End Date Route Frequency Dose Code Code System Medication Instructions Home Meds Ondansetron 4MG Oral Tablet, Disintegrating 12/16/2021 Unknown ORAL NEEDED EVERY 6 HOURS 1 TABLET 591009 RxNorm TAKE 1 TABLET ORAL NEEDED EVERY [...] Status Code Code System EPILEPSY 12/15/2021 resolved 91305580 SNOMED-CT Allergies and Adverse Reactions Allergy Substance Reaction Severity Start Date Concern Status Code Code System AMOXICILLIN Anaphylaxis (SNOMED-CT: 98213028) Active 723 RxNorm Plan of Treatment US OB COMPLETE 06/05/2022 US OB LIMITED 02/20/2022 US OB BIOPHYSICAL PROF 02/13/2022 US OB / TV 12/16/2021 US OB / TV 11/18/2021 Encounters Encounter Diagnosis Start Date Code Code Sys tem Uterine size for dates discrepancy 05/22/2022 744657 008 SNOMED-CT Personal Care Team Section Performer Name Performer Role Active Date Inactive Da te
--- OUTSIDE RECORDS SUMMARY | 2023-12-03 15:25 | XMS_ITS ---
Author Name Unknown Address [address] [place], [place] [phone] Phone Organization Unknown Address [address] [place] [address] [phone] Phone Care Team Providers Care Allergist/Md Name Role Phone CARMELINA Rouse Attending Unavailable BINH Alicea Primary Unavailable Social History Type Status Start Date End Date Code Code Syst em Smoking History Never smoker (Never Smoked) 068784414 SNOMED CT Sex Female Medications Medication Start Date End Date Route Frequency Dose Code Code System Medication Instructions Home Meds Ondansetron 4MG Oral Tablet, Disintegrating 12/16/2021 Unknown ORAL NEEDED EVERY 6 HOURS 1 TABLET 469317 RxNorm TAKE 1 TABLET ORAL NEEDED EVERY [...] Status Code Code System EPILEPSY 12/15/2021 resolved 79120518 SNOMED-CT Allergies and Adverse Reactions Allergy Substance Reaction Severity Start Date Concern Status Code Code System AMOXICILLIN Anaphylaxis (SNOMED-CT: 50076240) Active 723 RxNorm Plan of Treatment US OB COMPLETE 06/05/2022 US OB LIMITED 02/20/2022 US OB BIOPHYSICAL PROF 02/13/2022 US OB / TV 12/16/2021 US OB / TV 11/18/2021 Encounters Encounter Diagnosis Start Date Code Code Sys tem Maternal obesity complicatin g , childbirth and the puerperium, antepartum 06/19/2022 317348311878 SNOMED-CT Personal Care Team Section Performer Name Performer Role Active Date Inactive Da te
--- OUTSIDE RECORDS SUMMARY | 2023-12-03 15:25 | XMS_ITS ---
Author Name Unknown Address [address] [place], [place] [phone] Phone Organization Unknown Address [address] [place] [phone] Phone Care Team Providers Care Quarrying Manager Name Role Phone September Attending Unavailable BINH Alicea Primary Unavailable Social History Type Status Start Date End Date Code Code Syst em Smoking History Never smoker (Never Smoked) 377800800 SNOMED CT Sex Female Medications Medication Start Date End Date Route Frequency Dose Code Code System Medication Instructions Home Meds Ondansetron 4MG Oral Tablet, Disintegrating 12/16/2021 Unknown ORAL NEEDED EVERY 6 HOURS 1 TABLET 026849 RxNorm TAKE 1 TABLET ORAL NEEDED EVERY [...] Status Code Code System EPILEPSY 12/15/2021 resolved 67940254 SNOMED-CT Allergies and Adverse Reactions Allergy Substance Reaction Severity Start Date Concern Status Code Code System AMOXICILLIN Anaphylaxis (SNOMED-CT: 53621222) Active 723 RxNorm Plan of Treatment US OB COMPLETE 06/05/2022 US OB LIMITED 02/20/2022 US OB BIOPHYSICAL PROF 02/13/2022 US OB / TV 12/16/2021 US OB / TV 11/18/2021 Encounters Encounter Diagnosis Start Date Code Code Sys tem Elderly primigravida 06/26/2022 49636452 SNOMED- CT Personal Care Team Section Performer Name Performer Role Active Date Inactive Da te
--- OUTSIDE RECORDS SUMMARY | 2023-12-03 15:26 | XMS_ITS ---
Author Name Unknown Address [address] [place], [place] [phone] Phone Organization Unknown Address [address] [place] [phone] Phone Care Team Providers Care Frog Or Oyster Farmworker Name Role Phone CARMELINA Rouse Attending Unavailable BINH Alicea Primary Unavailable Social History Type Status Start Date End Date Code Code Syst em Smoking History Never smoker (Never Smoked) 862364269 SNOMED CT Sex Female Medications Medication Start Date End Date Route Frequency Dose Code Code System Medication Instructions Home Meds Ondansetron 4MG Oral Tablet, Disintegrating 12/16/2021 Unknown ORAL NEEDED EVERY 6 HOURS 1 TABLET 203736 RxNorm TAKE 1 TABLET ORAL NEEDED EVERY [...] Status Code Code System EPILEPSY 12/15/2021 resolved 19518890 SNOMED-CT Allergies and Adverse Reactions Allergy Substance Reaction Severity Start Date Concern Status Code Code System AMOXICILLIN Anaphylaxis (SNOMED-CT: 08413252) Active 723 RxNorm Plan of Treatment US OB COMPLETE 06/05/2022 US OB LIMITED 02/20/2022 US OB BIOPHYSICAL PROF 02/13/2022 US OB / TV 12/16/2021 US OB / TV 11/18/2021 Encounters Encounter Diagnosis Start Date Code Code Sys tem Maternal obesity complicatin g , childbirth and the puerperium, antepartum 07/01/2022 [id number] SNOMED-CT Personal Care Team Section Performer Name Performer Role Active Date Inactive Da te
--- OUTSIDE RECORDS SUMMARY | 2023-12-03 15:26 | XMS_ITS ---
Author Name Unknown Address [address], [place] [phone] Phone Organization Unknown Address [address] [place] [phone] Phone Care Team Providers Care Program Director Name Role Phone GISEL Sawyer Attending Unavailable [facility] Unavailable Social History Type Status Start Date End Date Code Code Syst em Smoking History Never smoker (Never Smoked) [id number] SNOMED CT Sex Female Medications Medication Start Date End Date Route Frequency Dose Code Code System Medication Instructions Home Meds Ondansetron 4MG Oral Tablet, Disintegrating 12/16/2021 Unknown ORAL NEEDED EVERY 6 HOURS 1 TABLET 375977 RxNorm TAKE 1 TABLET ORAL NEEDED EVERY [...] Status Code Code System EPILEPSY 12/15/2021 resolved [id number] SNOMED-CT Allergies and Adverse Reactions Allergy Substance Reaction Severity Start Date Concern Status Code Code System AMOXICILLIN Anaphylaxis (SNOMED-CT: 16797766) Active 723 RxNorm Plan of Treatment US OB COMPLETE 06/05/2022 US OB LIMITED 02/20/2022 US OB BIOPHYSICAL PROF 02/13/2022 US OB / TV 12/16/2021 US OB / TV 11/18/2021 Encounters Encounter Diagnosis Start Date Code Code Sys tem Post-term 07/08/2022 [id number] SNOMED-C T Personal Care Team Section Performer Name Performer Role Active Date Inactive Da te
--- OUTSIDE RECORDS SUMMARY | 2023-12-03 15:27 | XMS_ITS ---
Author Name Unknown Address [address], [place] [phone] Phone Organization Unknown Address [address] [place] [phone] Phone Care Team Providers Care Construction Code Administrator Name Role Phone September Unavailable Social History Type Status Start Date End Date Code Code Syst em Smoking History Never smoker (Never Smoked) [id number] SNOMED CT Sex Female Medications Medication Start Date End Date Route Frequency Dose Code Code System Medication Instructions Home Meds Ondansetron 4MG Oral Tablet, Disintegrating 12/16/2021 Unknown ORAL NEEDED EVERY 6 HOURS 1 TABLET 341759 RxNorm TAKE 1 TABLET ORAL NEEDED EVERY [...] Status Code Code System EPILEPSY 12/15/2021 resolved [id number] SNOMED-CT Allergies and Adverse Reactions Allergy Substance Reaction Severity Start Date Concern Status Code Code System AMOXICILLIN Anaphylaxis (SNOMED-CT: 36411376) Active 723 RxNorm Plan of Treatment US OB COMPLETE 06/05/2022 US OB LIMITED 02/20/2022 US OB BIOPHYSICAL PROF 02/13/2022 US OB / TV 12/16/2021 US OB / TV 11/18/2021 Encounters Encounter Diagnosis Start Date Code Code Sys tem Post-term 07/10/2022 SNOMED-C T Personal Care Team Section Performer Name Performer Role Active Date Inactive Da te
[2023-12-06 12:25] LABS: Lyme Ab w Rflx to Lyme Confirm Negative (Negative)
== END 2023-12-03 15:19 | disposition home or self-care (01) ==
LOC: NCHCN 15:18
PROVIDERS: PCP Family Medicine; Visit Provider Family Medicine
DX: E55.9 Vitamin D deficiency, unspecified (principal); T14.8XXA Other injury of unspecified body region, initial encounter; W57.XXXA Bitten or stung by nonvenomous insect and other nonvenomous arthropods, initial encounter
CPT/HCPCS: 82306; 86618

== ENCOUNTER 2024-10-10 16:43 | Outpatient (REF) | payer BC, SELFPAY ==
[2024-10-10 21:45] LABS: HCT 42.1 % (36.0-46.0); HGB 13.7 g/dL (11.2-15.7); MCH 28.5 pg (27.0-33.0); MCHC 32.5 % (32.0-36.0); MCV 88 fL (80-95); MPV 10.5 fL (8.0-11.0); Platelet Count 317 10^3/uL (130-400); RBC 4.81 10^6/uL (3.93-5.22); RDW 13.5 % (11.7-14.6); RDW-SD 43.5 fL; WBC 9.78 10^3/uL (4.4-10.8)
[2024-10-10 22:04] LABS: ALT 25 U/L (14-59); AST 20 U/L (15-37); Albumin 3.9 g/dL (3.4-5.0); Alkaline Phosphatase 58 U/L (46-116); BUN 14 mg/dL (7-18); Bilirubin, Total 0.3 mg/dL (0.2-1.0); CREATININE 0.7 mg/dL (0.55-1.02); Calcium 9.4 mg/dL (8.5-10.1); Calculated LDL 128 mg/dL (<100); Chloride 104 mmol/L (98-107); Cholesterol 205 mg/dL (<200); Estimated GFR 112.75 (mL/min/1.73m2); Glucose 97 mg/dL (74-106); HDL Cholesterol 46 mg/dL (>or=50); Sodium 139 mmol/L (136-145); TSH (W/Ref FT4) 2.27 uIU/mL (0.36-3.74); Total Protein 7.8 g/dL (6.4-8.2); Triglyceride 157 mg/dL (<150)
== END 2024-10-10 16:44 | disposition home or self-care (01) ==
LOC: NCHCN 16:43
PROVIDERS: PCP Family Medicine; Visit Provider Family Medicine
DX: Z00.00 Encounter for general adult medical examination without abnormal findings (principal); E66.811 Obesity, class 1
CPT/HCPCS: 80053; 80061; 85027; 83036; 84443

== ENCOUNTER → 2025-05-22 00:28 | Outpatient (CLI) | payer BC, MEDICAID, SELFPAY ==
--- NOTE | 2025-05-22 | DI.MAMMO_ITS ---
Exam(s) MAMMO SCREENING EXAM: MAMMO SCREENING CLINICAL HISTORY: SCREENING MAMMO Z12.31 TECHNIQUE: Mammograms were interpreted according to the usual protocol including computer analysis with CAD system, tomosynthesis and C-view imaging. COMPARISON: No exams were available for comparison. Baseline examination. FINDINGS: The breasts are composed of scattered fibroglandular densities, Breast Density category B. No suspicious masses or suspicious microcalcifications are seen. No skin thickening or abnormal axillary lymph nodes are seen. IMPRESSION: BI-RADS Category 1, Negative mammogram Yearly screening mammography is recommended. Breast Density - Category B - There are scattered areas of fibroglandular density. Breast density Category C or D implies that the patient has dense breast tissue. Dense breast tissue can make it harder to find cancer on a mammogram. Dense breast tissue is also associated with an increased risk of breast cancer. This information about the result of the mammogram report was provided to the patient to raise their awareness. Use this report when you speak with the patient about their risks for breast cancer, which includes their family history. At that time, you may recommend additional screening tests (Ultrasound or MRI) as these tests may add significant information. A negative radiographic report should not delay biopsy if a dominant or clinically suspicious mass is present. Up to ten percent of cancers are not identified on mammography. A negative report may reinforce clinical impression. Adenosis and dense breasts may obscure an underlying neoplasm. False positive reports average 6 to 10%. Patient will receive a letter notifying them of these results.
== END ==
PROVIDERS: PCP Family Medicine; Visit Provider Family Medicine
DX: Z12.31 Encounter for screening mammogram for malignant neoplasm of breast (principal)
CPT/HCPCS: 77063; 77067